=== PATIENT | female | born 1950 | race Caucasian/White ===

== ENCOUNTER 2024-07-09 19:50 | Inpatient (IN) ==
[2024-07-09] MEDS: ACETAMINOPHEN 1,000 MG/100 ML BAG IV ONE (20:57)
[2024-07-09] MEDS: 0.9 % SODIUM CHLORIDE 1,000 ML IV ONE (20:57)
[2024-07-09 21:06] LABS: Basophils # (Auto) 0.05 K/mcL (0.00-0.30); Basophils % (Auto) 0.5 % (0.0-2.0); Eosinophils # (Auto) 0.18 K/mcL (0.00-0.70); Eosinophils % (Auto) 1.7 % (0.0-7.0); Hemoglobin 14.9 g/dL (11.2-15.7); Lymphocytes # (Auto) 1.13 K/mcL (1.50-4.80); Lymphocytes % (Auto) 10.6 % (15.5-49.0); Mean Cell Volume 92.9 fL (80.0-100.0); Mean Corpuscular HGB Conc 32.4 g/dL (31.0-36.0); Mean Platelet Volume 10.8 fL (8.8-12.5); Monocytes # (Auto) 0.99 K/mcL (0.10-0.90); Monocytes % (Auto) 9.3 % (1.0-12.0); Neutrophils % (Auto) 77.1 % (38.0-78.0); Platelet Count 328 K/mcL (140-440); RBC 4.95 M/mcL (3.59-5.38); Red Cell Distribution Width 14.6 % (11.5-14.5); WBC 10.7 K/mcL (4.5-11.0)
[2024-07-09 21:28] LABS: Creatine Kinase 52 U/L (24-170)
[2024-07-09 21:33] LABS: Appearance,Urine Clear (Clear); Bacteria,Urine Many /hpf (0); Bilirubin,Urine Small mg/dL (Negative); Color,Urine Yellow; Glucose,Urine (UA) Negative (Negative); Ketones,Urine Negative (Negative); Leukocyte Esterase,Urine Trace /uL (Negative); Nitrate,Urine Positive (Negative); PH,Urine 5.5 (5.0-9.0); Protein,Urine Trace mg/dL (Negative); Specific Gravity,Urine >= 1.030 (1.000-1.035); Urine Blood Trace-lysed ery/mcL (Negative); Urine RBC 1 /hpf (0-3); Urine Squamous Epithelial Cell 1 /hpf (0-4); Urine WBC 10 /hpf (0-4); Urobilinogen,Urine Normal
[2024-07-09 21:36] LABS: ALT/SGPT 21 U/L (<40); AST/SGOT 55 U/L (<32); Albumin 3.6 gm/dL (3.2-5.2); Albumin/Globulin Ratio 0.8 (1.0-2.3); Alkaline Phosphatase 53 U/L (39-117); Bilirubin,Total 0.7 mg/dL (0.1-1.0); Blood Urea Nitrogen 36 mg/dL (8-23); Calcium 11.1 mg/dL (8.6-10.4); Carbon Dioxide 21 mmol/L (22-30); Chloride 98 mmol/L (96-108); Globulin 4.5 gm/dL (2.2-3.7); Glomerular Filtration Rate 45; Glucose 113 mg/dL (70-105); Potassium 4.5 mmol/L (3.3-5.1); Sodium 134 mmol/L (133-145)
[2024-07-09] MEDS: CIPROFLOXACIN 400 MG/200 ML BAG IV ONE (23:31)
[2024-07-09] MEDS: APIXABAN 5 MG TABLET PO ONE (23:31)
[2024-07-10] MEDS ORDERED: ONDANSETRON 4 MG/2 ML VIAL IV PRN (00:37)
[2024-07-10] MEDS ORDERED: ALBUTEROL SULFATE 2.5 MG/3 ML NEBULIZER NEB PRN (00:37)
[2024-07-10] MEDS: 0.9 % SODIUM CHLORIDE 1,000 ML IV SCH (00:59)
[2024-07-10] MEDS: ACETAMINOPHEN 325 MG TABLET PO PRN (02:28)
[2024-07-10] MEDS: ACETAMINOPHEN 325 MG TABLET PO ONE (02:49)
[2024-07-10] MEDS ORDERED: IOPAMIDOL 100 ML BOTTLE IV ONE (04:01)
[2024-07-10] MEDS: 0.9 % SODIUM CHLORIDE 10 ML SYRINGE IV SCH (05:14)
[2024-07-10 06:21] LABS: ALT/SGPT 20 U/L (<40); AST/SGOT 40 U/L (<32); Albumin 3.2 gm/dL (3.2-5.2); Albumin/Globulin Ratio 0.8 (1.0-2.3); Alkaline Phosphatase 50 U/L (39-117); Bilirubin,Direct 0.2 mg/dL (<0.3); Bilirubin,Total 0.5 mg/dL (0.1-1.0); Blood Urea Nitrogen 33 mg/dL (8-23); Calcium 10.4 mg/dL (8.6-10.4); Carbon Dioxide 24 mmol/L (22-30); Chloride 100 mmol/L (96-108); Globulin 3.9 gm/dL (2.2-3.7); Glomerular Filtration Rate 56; Glucose 117 mg/dL (70-105); Lactate Dehydrogenase 195 U/L (135-225); Potassium 3.8 mmol/L (3.3-5.1); Sodium 135 mmol/L (133-145); Triglycerides 84 mg/dL (<150); Uric Acid 7.7 mg/dL (2.5-8.0)
[2024-07-10] MEDS ORDERED: ALBUTEROL SULFATE 60 PUFF INHALER INH PRN (09:23)
[2024-07-10] MEDS ORDERED: FLUTICASONE PROPIONATE SPRAY.NAS NS PRN (09:23)
[2024-07-10] MEDS: CIPROFLOXACIN 400 MG/200 ML BAG IV SCH (10:30)
[2024-07-10] MEDS: DOCUSATE SODIUM 100 MG CAPSULE PO SCH (10:55)
[2024-07-10] MEDS: APIXABAN 5 MG TABLET PO SCH (10:55)
[2024-07-10] MEDS: FOLIC ACID 1 MG TABLET PO SCH (10:55)
[2024-07-10] MEDS: HYDROCODONE/APAP 7.5/325MG TABLET PO PRN (10:56)
[2024-07-10] MEDS: methylPREDNISolone SOD SUCC 125 MG/2 ML VIAL IV ONE ×2 (11:55→12:57)
[2024-07-10] MEDS: IBUPROFEN 800 MG TABLET PO PRN (17:46)
[2024-07-10] MEDS: SENNOSIDES 1 TABLET PO SCH (20:11)
[2024-07-11 06:40] LABS: Basophils # (Auto) 0.04 K/mcL (0.00-0.30); Basophils % (Auto) 0.3 % (0.0-2.0); Eosinophils # (Auto) 0.02 K/mcL (0.00-0.70); Eosinophils % (Auto) 0.1 % (0.0-7.0); Hematocrit 38.9 % (34.1-44.9); Hemoglobin 12.6 g/dL (11.2-15.7); Lymphocytes # (Auto) 1.41 K/mcL (1.50-4.80); Lymphocytes % (Auto) 9.4 % (15.5-49.0); Mean Corpuscular HGB Conc 32.4 g/dL (31.0-36.0); Mean Platelet Volume 10.3 fL (8.8-12.5); Monocytes # (Auto) 1.45 K/mcL (0.10-0.90); Monocytes % (Auto) 9.7 % (1.0-12.0); Neutrophils % (Auto) 80.1 % (38.0-78.0); Platelet Count 316 K/mcL (140-440); RBC 4.14 M/mcL (3.59-5.38); Red Cell Distribution Width 14.4 % (11.5-14.5)
[2024-07-11 07:04] LABS: ALT/SGPT 18 U/L (<40); AST/SGOT 26 U/L (<32); Albumin 3.2 gm/dL (3.2-5.2); Albumin/Globulin Ratio 0.9 (1.0-2.3); Alkaline Phosphatase 47 U/L (39-117); Bilirubin,Direct < 0.2 mg/dL (0-0.3); Bilirubin,Total 0.3 mg/dL (0.1-1.0); Blood Urea Nitrogen 31 mg/dL (8-23); Calcium 10.3 mg/dL (8.6-10.4); Carbon Dioxide 24 mmol/L (22-30); Chloride 100 mmol/L (96-108); Globulin 3.7 gm/dL (2.2-3.7); Glomerular Filtration Rate 56; Glucose 137 mg/dL (70-105); Lactate Dehydrogenase 182 U/L (135-225); Phosphorous 2.7 mg/dL (2.5-4.5); Potassium 4.4 mmol/L (3.3-5.1); Sodium 134 mmol/L (133-145); Triglycerides 67 mg/dL (<150); Uric Acid 6.1 mg/dL (2.5-8.0)
[2024-07-11] MEDS: predniSONE 10 MG TABLET PO SCH (08:18)
[2024-07-11] MEDS: SERTRALINE 100 MG TABLET PO SCH (08:24)
[2024-07-11] MEDS: FLU VACC TS2024-25(65YR UP)/PF 180 MCG/0.5 ML SYRINGE IM ONE (09:31)
[2024-07-11] MEDS: PNEUMOCOCCAL 23-VAL P-SAC VAC 0.5 ML SYRINGE IM ONE (09:50)
[2024-07-12] MEDS ORDERED: CIPROFLOXACIN 500 MG TABLET PO SCH (21:00)
== END 2024-07-12 15:25 | DRG 176 ==
LOC: ED 19:50 → MEDSUR 07-10 00:22
PROVIDERS: ADMIT Internal Medicine; ATTEND Student in an Organized Health Care Education/Training Program